=== PATIENT | female | born 1995 | race Hispanic/Latino ===

== ENCOUNTER 2018-06-03 18:32 | Emergency (ER) | payer SELFPAY ==
[2018-06-03 19:32] LABS: Absolute Lymphocytes (CBC) 2.3 K/uL (0.7-4.9); Absolute Monocytes 0.4 K/uL (0.1-1.3); Absolute Neutrophil 5.4 K/uL (1.8-8.0); Basophils % 0.9 % (0-1.3); Eosinophils % 0.3 % (0-4.4); Hematocrit 38.4 % (36.0-45.0); Lymphocytes % 27.8 % (15.3-44.8); MPV 9.1 fL (7.6-11.3); Monocytes % 5.3 % (3.3-12.3); RBC Red Blood Cell Count 4.03 M/uL (3.86-4.86)
[2018-06-03 19:50] LABS: BUN Blood Urea Nitrogen 7 mg/dL (7-18); Bicarbonate 19 mmol/L (21-32); Glucose Level 84 mg/dL (74-106); Potassium 3.7 mmol/L (3.5-5.1); Sodium Level 147 mmol/L (136-145)
[2018-06-03] MEDS ORDERED: NA CHLORIDE 0.9% 1,000 ML ONE (20:09)
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
--- NOTE | 2018-06-03 20:12 | RAD REPORT ---
EXAM DESCRIPTION: Mariel Haynes Left06/03/2018 7:57 pm CLINICAL HISTORY: Left leg pain status post injury FINDINGS: No fracture is seen
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
== END 2018-06-03 20:32 | disposition home or self-care (01) ==
LOC: ER 18:32
DX: G89.11 Acute pain due to trauma (principal); S80.11XA Contusion of right lower leg, initial encounter; S80.812A Abrasion, left lower leg, initial encounter; S00.90XA Unspecified superficial injury of unspecified part of head, initial encounter; V58.5XXA Driver of pick-up truck or van injured in noncollision transport accident in traffic accident, initial encounter; J45.909 Unspecified asthma, uncomplicated; Z88.6 Allergy status to analgesic agent; Z91.040 Latex allergy status; Z91.048 Other nonmedicinal substance allergy status
CPT/HCPCS: 36415; 70450; 71260; 72125; 74177; 80048; 85025; 86850; 86900; 86901; J7030; Q9967

== ENCOUNTER 2022-06-26 23:07 | Emergency (ER) | payer SELFPAY ==
[2022-06-26] MEDS ORDERED: NA CHLORIDE 0.9% 1,000 ML ONE (23:35)
[2022-06-26 23:53] LABS: Absolute Lymphocytes (CBC) 1.6 K/uL (0.7-4.9); Hematocrit 37.3 % (36.0-45.0); Lymphocytes % 14.2 % (15.3-44.8); MCV 96.8 fL (80-100); MPV 8.6 fL (7.6-11.3); RBC Red Blood Cell Count 3.85 M/uL (3.86-4.86)
[2022-06-27 00:06] LABS: Albumin 3.4 g/dL (3.4-5.0); Bilirubin Total 0.2 mg/dL (0.2-1.0); Potassium 3.8 mEq/L (3.5-5.1); Protein, Total 6.5 g/dL (6.4-8.2)
[2022-06-27] MEDS ORDERED: NA CHLORIDE 0.9% 1,000 ML ONE (01:12)
[2022-06-27 01:28] LABS: Specific Gravity 1.011 (1.005-1.030); Urine Bilirubin NEGATIVE (Negative); Urine Blood Negative (Negative); Urine Clarity Clear (Clear); Urine Color Colorless (Yellow); Urine Glucose NEGATIVE (Negative); Urine Protein NEGATIVE (Negative); Urine Urobilinogen Normal (Normal)
[2022-06-27 01:32] LABS: Specific Gravity 1.011 (1.005-1.030)
[2022-06-27 01:53] LABS: Barbiturates NEGATIVE (NEGATIVE); Benzodiazepines NEGATIVE (NEGATIVE); Cocaine NEGATIVE (NEGATIVE); METHAMPHETAM NEGATIVE (NEGATIVE); Methadone NEGATIVE (NEGATIVE); Opiates NEGATIVE (NEGATIVE); Phencyclidine NEGATIVE (NEGATIVE); THC Cannibis POSITIVE (NEGATIVE)
--- NOTE | 2022-06-27 02:05 | EDPHYS ---
Physician Documentation [facility] Name: Geovanna Cornelius Age: 26 yrs Sex: Female : 1995 Arrival Date: 06/26/2022 Time: 23:07 Bed 20 Private MD: ED Physician Rocío Schwartz HPI: 06/26 23:29 This 26 yrs old Female presents to ER via EMS with complaints of General sp3 Weakness \\T\\ dehydration. 23:29 26-year-old female with a history of asthma, schizophrenia, anxiety now presents to the sp3 ED with chief complaint dehydration and generalized weakness. Patient is currently homeless and away from her parents living in [facility]. She states she has not been on any of her medications due to "her current situation". She denies any suicidal ideation, homicidal ideation, hearing voices, or any other psychiatric symptoms at this time. She states that due to her situation, she is been with decreased food and water and due to her being outside for quite some time in the sun she feels dehydrated. That is the sole reason she flagged down a passing by EMS. Her only somatic complaint is a very mild headache. She denies any trauma, illicit drug use, alcohol intake, or any other related history. On review of systems, she denies neck pain, chest pain, back pain, shortness of breath, abdominal pain, nausea, vomiting, diarrhea, or any other symptoms at this time. LMP was June 16 but she states she is sexually active and there is possibility of .. 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 - Social history:: Smoking status: Patient reports the use of cigarette tobacco products, smokes one pack cigarettes per day. ROS: 23:31 Eyes: Negative for injury, pain, redness, and discharge, ENT: Negative for injury, sp3 pain, and discharge, Neck: Negative for injury, pain, and swelling, Cardiovascular: Negative for chest pain, palpitations, and edema, Respiratory: Negative for shortness of breath, cough, wheezing, and pleuritic chest pain, Abdomen/GI: Negative for abdominal pain, nausea, vomiting, diarrhea, and constipation, Back: Negative for injury and pain, MS/Extremity: Negative for injury and deformity, Skin: Negative for injury, rash, and discoloration, Psych: Negative for depression, anxiety, suicide ideation, homicidal ideation, and hallucinations, Allergy/Immunology: Negative for hives, rash, and allergies, Endocrine: Negative for neck swelling, polydipsia, polyuria, polyphagia, and marked weight changes, Hematologic/Lymphatic: Negative for swollen nodes, abnormal bleeding, and unusual bruising. 23:31 All other systems are negative. Exam: 23:32 Constitutional: This is a well developed, well nourished patient who is awake, alert, sp3 and in no acute distress. Head/Face: Normocephalic, atraumatic. Eyes: Pupils equal round and reactive to light, extra-ocular motions intact. Lids and lashes normal. Conjunctiva and sclera are non-icteric and not injected. Cornea within normal limits. Periorbital areas with no swelling, redness, or edema. ENT: Nares patent. No nasal discharge, no septal abnormalities noted. External auditory canals are clear. Oropharynx with no redness, swelling, or masses, exudates, or evidence of obstruction, uvula midline. Mucous membranes moist. Neck: Trachea midline, no thyromegaly or masses palpated, and no cervical lymphadenopathy. Supple, full range of motion without nuchal rigidity, or vertebral point tenderness. No Meningismus. Chest/axilla: Normal chest wall appearance and motion. Nontender with no deformity. No lesions are appreciated. Cardiovascular: Regular rate and rhythm with a normal S1 and S2. No gallops, murmurs, or rubs. Normal PMI, no JVD. No pulse deficits. Respiratory: Lungs have equal breath sounds bilaterally, clear to auscultation and percussion. No rales, rhonchi or wheezes noted. No increased work of breathing, no retractions or nasal flaring. Abdomen/GI: Soft, non-tender, with normal bowel sounds. No distension or tympany. No guarding or rebound. No evidence of tenderness throughout. Back: No spinal tenderness. No costovertebral tenderness. Full range of motion. MS/ Extremity: Pulses equal, no cyanosis. Neurovascular intact. Full, normal range of motion. Neuro: Awake and alert, GCS 15, oriented to person, place, time, and situation. Cranial nerves II-XII grossly intact. Motor strength 5/5 in all extremities. Sensory grossly intact. Cerebellar exam normal. Normal gait. Psych: Awake, alert, with orientation to person, place and time. Behavior, mood, and affect are within normal limits. 23:32 Skin: Patient has sunburn on her face and upper extremities in sun exposed areas. No peeling noted.. Vital Signs: 23:16 BP 149 / 86; Pulse 72; Resp 12; Pulse Ox 99% on R/A; Weight 117.93 kg; Height 5 ft. 8 vc1 in. ; Pain 5/10; 06/27 00:00 BP 135 / 72; Pulse 87; Resp 13; Pulse Ox 100% ; vc1 01:15 BP 133 / 83; Pulse 63; Resp 13; Pulse Ox 100% ; vc1 06/26 23:16 Body Mass Index 39.53 (117.93 kg, 172.72 cm) vc1 06/26 23:16 Pain Scale: Adult vc1 MDM: 06/26 23:15 Patient medically screened. sp3 23:32 Data reviewed: vital signs, nurses notes, EMS record, lab test result(s). ED course: sp3 26-year-old female with past psychiatric history of schizophrenia now presents to the ED for mild heat exhaustion and dehydration. We will check laboratory values and administer normal saline. I do not believe patient has any psychiatric presentation at this time. If work-up is negative and patient feels better, she will be safely discharged from the emergency department at this time.. 06/27 02:03 ED course: Urine drug screen is positive for THC only. Patient is not . Patient sp3 has received 2 L of normal saline and is feeling much better. Remainder of laboratory values are unremarkable. Will discharge patient home at this time. Patient continues to be free from any psychiatric complications including suicidal ideation, homicidal ideation and psychosis.. 06/26 23:14 Order name: CBC with Diff; Complete Time: 23:58 sp3 06/26 23:14 Order name: CMP; Complete Time: 00:48 sp3 06/26 23:14 Order name: Lipase; Complete Time: 00:48 sp3 06/26 23:14 Order name: Test, Urine; Complete Time: 02:02 sp3 06/26 23:14 Order name: Urinalysis w/ reflexes; Complete Time: 02:02 sp3 06/26 23:14 Order name: CK; Complete Time: 00:48 sp3 06/26 23:14 Order name: Urine Drug Screen; Complete Time: 02:02 sp3 06/26 23:14 Order name: IV Saline Lock; Complete Time: 23:25 sp3 06/26 23:14 Order name: Labs collected and sent; Complete Time: 23:25 sp3 Administered Medications: 06/26 23:32 Drug: NS 0.9% IV 1000 ml Route: IV; Rate: 1 bolus; Site: left antecubital; vc1 06/27 01:00 Follow up: IV Status: Completed infusion; IV Intake: 1000ml vc1 01:10 Drug: NS 0.9% IV 1000 ml Route: IV; Rate: 1 bolus; Site: left antecubital; as6 03:26 Follow up: IV Status: Completed infusion; IV Intake: 1000ml vc1 Disposition Summary: 06/27/22 02:04 Discharge Ordered Location: Home sp3 Condition: Stable sp3 Diagnosis - DEHYDRATION sp3 Followup: sp3 - With: Private Physician - When: Upon discharge from the Emergency Department - Reason: Recheck today's complaints, Continuance of care Discharge Instructions: - Discharge Summary Sheet sp3 - Heat Exhaustion sp3 Forms: - Medication Reconciliation Form sp3 - Thank You Letter sp3 - Antibiotic Education sp3 - Prescription Opioid Use sp3 Signatures: Dispatcher [employer] EDRocío Vasquez MD MD sp3 Wojciech Day, RN RN as6 Shellie Holloway RN RN vc1
--- NOTE | 2022-06-27 02:05 | ER ---
Nurse's Notes [facility] Name: Geovanna Cornelius Age: 26 yrs Sex: Female : 1995 Arrival Date: 06/26/2022 Time: 23:07 Bed 20 Private MD: Diagnosis: DEHYDRATION Presentation: 06/26 23:16 Chief complaint: Patient states: "I just felt weak and really nauseous, I just don't vc1 feel good.". Coronavirus screen: Vaccine status: Patient reports being unvaccinated. Client denies travel out of the [place] in the last 14 days. At this time, the client does not indicate any symptoms associated with coronavirus-19. Ebola Screen: Patient negative for fever greater than or equal to 101.5 degrees Fahrenheit, and additional compatible Ebola Virus Disease symptoms Patient denies exposure to infectious person. Patient denies travel to an Ebola-affected area in the 21 days before illness onset. No symptoms or risks identified at this time. Initial Sepsis Screen: Does the patient meet any 2 criteria? No. Patient's initial sepsis screen is negative. Does the patient have a suspected source of infection? No. Patient's initial sepsis screen is negative. Risk Assessment: Do you want to hurt yourself or someone else? Patient reports no desire to harm self or others. Onset of symptoms was June 26, 2022. 23:16 Method Of Arrival: EMS: [facility] 23:16 Acuity: ANGELY 4 1 23:16 Care prior to arrival: IV initiated. 22 GA, in the left antecubital area. 1 Triage Assessment: 23:20 General: Appears in no apparent distress. uncomfortable, obese, Behavior is vc1 cooperative, flat. Pain: Complains of pain in "headache" Pain does not radiate. Pain currently is 5 out of 10 on a pain scale. EENT: No deficits noted. No signs and/or symptoms were reported regarding the EENT system. Neuro: Reports headache weakness. Cardiovascular: No deficits noted. Respiratory: Airway is patent Respiratory effort is even, unlabored, Respiratory pattern is regular, symmetrical. GI: Reports nausea. : No deficits noted. No signs and/or symptoms were reported regarding the genitourinary system. Derm: No deficits noted. No signs and/or symptoms reported regarding the dermatologic system. Musculoskeletal: No deficits noted. No signs and/or symptoms reported regarding the musculoskeletal system. 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 - Social history:: Smoking status: Patient reports the use of cigarette tobacco products, smokes one pack cigarettes per day. Screenin:19 [facility] ED Fall Risk Assessment (Adult) History of falling in the last 3 months, vc1 including since admission Confusion or Disorientation No (0 pts) Intoxicated or Sedated No (0 pts) Impaired Gait No (0 pts) Mobility Assist Device Used No (0 pt) Altered Elimination No (0 pt) Score/Fall Risk Level 0 - 2 = Low Risk Oriented to surroundings, Maintained a safe environment, Educated pt \\T\\ family on fall prevention, incl call for assistance when getting out of bed. Abuse screen: Denies threats or abuse. Nutritional screening: No deficits noted. Tuberculosis screening: No symptoms or risk factors identified. Assessment: 23:34 Reassessment: see triage assessment. vc1 06/27 00:00 Reassessment: No changes from previously documented assessment. Patient and/or family vc1 updated on plan of care and expected duration. Pain level reassessed. 01:00 Reassessment: No changes from previously documented assessment. Patient and/or family vc1 updated on plan of care and expected duration. Pain level reassessed. 01:40 Reassessment: pt sleeping, no complaints at this time. vc1 02:20 Reassessment: waiting for bolus to finish. vc1 Vital Signs: 06/26 23:16 BP 149 / 86; Pulse 72; Resp 12; Pulse Ox 99% on R/A; Weight 117.93 kg; Height 5 ft. 8 vc1 in. ; Pain 10; 06/27 00:00 BP 135 / 72; Pulse 87; Resp 13; Pulse Ox 100% ; vc1 01:15 BP 133 / 83; Pulse 63; Resp 13; Pulse Ox 100% ; vc1 06/26 23:16 Body Mass Index 39.53 (117.93 kg, 172.72 cm) vc1 06/26 23:16 Pain Scale: Adult vc1 ED Course: 06/26 23:11 Patient arrived in ED. as6 23:12 Rocío Schwartz MD is Attending Physician. sp3 23:13 Shellie Holloway, DESEAN is Primary Nurse. vc1 23:18 Triage completed. vc1 23:25 CBC with Diff Sent. rv1 23:25 CMP Sent. rv1 23:25 Lipase Sent. rv1 23:25 Maintain EMS IV. vc1 23:25 Arm band placed on left wrist. vc1 23:26 Patient has correct armband on for positive identification. Bed in low position. Call vc1 light in reach. Side rails up X2. Client placed on continuous cardiac and pulse oximetry monitoring. NIBP monitoring applied. 06/27 01:18 Urine Drug Screen Sent. as6 01:18 Test, Urine Sent. as6 01:18 Urinalysis w/ reflexes Sent. as6 03:26 No provider procedures requiring assistance completed. IV discontinued, intact, vc1 bleeding controlled, No redness/swelling at site. Pressure dressing applied. Administered Medications: 06/26 23:32 Drug: NS 0.9% IV 1000 ml Route: IV; Rate: 1 bolus; Site: left antecubital; vc1 06/27 01:00 Follow up: IV Status: Completed infusion; IV Intake: 1000ml vc1 01:10 Drug: NS 0.9% IV 1000 ml Route: IV; Rate: 1 bolus; Site: left antecubital; as6 03:26 Follow up: IV Status: Completed infusion; IV Intake: 1000ml vc1 Medication: 06/26 23:26 VIS not applicable for this client. vc1 Intake: 06/27 01:00 IV: 1000ml; Total: 1000ml. vc1 03:26 IV: 1000ml; Total: 2000ml. vc1 Outcome: 02:04 Discharge ordered by . sp3 03:27 Discharged to home ambulatory. vc1 03:27 Condition: good 03:27 Discharge instructions given to patient, Instructed on discharge instructions, follow up and referral plans. Demonstrated understanding of instructions, follow-up care. 03:30 Patient left the ED. vc1 Signatures: Rocío Schwartz MD MD sp3 Wojciech Day RN RN as6 Shellie Holloway RN RN vc1 Alf, Felicia rv1
[2022-06-27 03:36] VITALS: O2SAT 100
[2022-06-27 03:38] VITALS: BP 133/83
== END 2022-06-27 03:30 | disposition home or self-care (01) ==
LOC: ER 23:07
DX: E86.0 Dehydration (principal)
CPT/HCPCS: 36415; 80053; 80307; 81003; 81025; 82550; 83690; 85025; 96360; 96361; 99284; J7030